=== PATIENT | female | born 1995 | race Hispanic/Latino ===

== ENCOUNTER 2019-06-07 19:32 | Observation (INO) | payer MEDICAID ==
[~2019-06-07] VITALS: Ht 160 cm; Wt 82.1 kg
[2019-06-07] MEDS ORDERED: LACTATED RINGERS 1000ML 1,000 ML IV SCH ×2 (19:45→21:45)
[2019-06-07] MEDS ORDERED: PHARMACY COMMUNICATION MISC SCH (19:45)
[2019-06-07] MEDS ORDERED: PREN-196 PO (19:46)
[2019-06-07] MEDS ORDERED: LACTATED RINGERS 1000ML 1,000 ML IV PRN (20:10)
[2019-06-07 20:17] LABS: BILIRUBIN,URINE Negative (NEGATIVE); COLOR,URINE Yellow (YELLOW); GLUCOSE, URINE (UA) Negative (NEGATIVE); KETONES,URINE >=80 mg/dL (NEGATIVE); LEUKOCYTE ESTERASE ,URINE Large (NEGATIVE); NITRATE,URINE Positive (NEGATIVE); OCCULT BLOOD,URINE Moderate (NEGATIVE); PROTEIN,URINE POS 2+ mg/dL (NEGATIVE)
[2019-06-07 20:24] LABS: AMPHET/METH SCREEN,URINE NEGATIVE (NEGATIVE); BARBITURATE SCREEN, URINE NEGATIVE (NEGATIVE); BENZODIAZEPINES SCREEN,URINE NEGATIVE (NEGATIVE); CANNABINOID SCREEN,URINE NEGATIVE (NEGATIVE); COCAINE SCREEN,URINE NEGATIVE (NEGATIVE); OPIATE SCREEN,URINE NEGATIVE (NEGATIVE); PHENCYCLIDINE SCREEN,URINE NEGATIVE (NEGATIVE)
[2019-06-07 20:42] LABS: APPEARANCE,URINE CLOUDY (CLEAR); BACTERIA,URINE Few /HPF (None Seen); SQUAMOUS EPITHELIAL CELL,UR Few /HPF (0-2); WBC,URINE 26-50 /HPF (0-1)
[2019-06-07] MEDS ORDERED: TERBUTALINE SULFATE VIAL 1MG/ML SQ SCH (21:45)
[2019-06-07] MEDS ORDERED: TERBUTALINE SULFATE VIAL 1MG/ML SQ ONE (21:50)
[2019-06-07] MEDS: TERBUTALINE SULFATE VIAL 1MG/ML SQ SCH ×2 (22:29→23:37)
[2019-06-07 22:32] LABS: APPEARANCE,URINE Cloudy (CLEAR); BILIRUBIN,URINE Negative (NEGATIVE); COLOR,URINE Yellow (YELLOW); GLUCOSE, URINE (UA) Negative (NEGATIVE); KETONES,URINE 40 mg/dL (NEGATIVE); LEUKOCYTE ESTERASE ,URINE Large (NEGATIVE); NITRATE,URINE Positive (NEGATIVE); OCCULT BLOOD,URINE Large (NEGATIVE); PROTEIN,URINE POS 1+ mg/dL (NEGATIVE)
[2019-06-07 22:55] LABS: BACTERIA,URINE Moderate /HPF (None Seen); SQUAMOUS EPITHELIAL CELL,UR Rare /HPF (0-2); WBC,URINE 26-50 /HPF (0-1)
[2019-06-07] MEDS ORDERED: ACETAMINOPHEN EXTRA STRENGTH 500 MG TABLET PO PRN (23:45)
[2019-06-08] MEDS: AMPICILLIN 2GM+NS 100ML 100 ML IV SCH ×2 (00:21→06:36)
[2019-06-08 03:40] VITALS: BP 120/80
[2019-06-08] MEDS ORDERED: FLUCONAZOLE 100 MG TAB PO SCH (06:45)
[2019-06-08] MEDS ORDERED: CEFTRIAXONE SODIUM 1 GM IVP SCH (06:45)
[2019-06-08] MEDS ORDERED: KETAMINE HCL 100 MG/ML 5ML VIAL IJ ONE (08:31)
== END 2019-06-08 10:13 | disposition home or self-care (01) ==
LOC: LDH 19:32
PROVIDERS: ADMIT Obstetrics & Gynecology; ATTEND Obstetrics & Gynecology
DX: O23.43 Unspecified infection of urinary tract in pregnancy, third trimester (principal); O62.9 Abnormality of forces of labor, unspecified; O99.323 Drug use complicating pregnancy, third trimester; F12.90 Cannabis use, unspecified, uncomplicated; O99.613 Diseases of the digestive system complicating pregnancy, third trimester; K59.00 Constipation, unspecified; Z3A.30 30 weeks gestation of pregnancy; Z79.899 Other long term (current) drug therapy
CPT/HCPCS: 80305; 81001; 96365; 96366; 96372; 96375; G0378 ×16; J0290 ×3; J0696; J3105; J3490; J7120 ×2

== ENCOUNTER 2020-12-10 15:45 | Emergency (ER) | payer MEDICAID ==
[~2020-12-10 15:45] MED LIST: PREN-196 PO
[2020-12-10 16:19] LABS: BASOPHILS % (AUTO) 0.4 % (0.0-5.0); HEMATOCRIT 35.9 % (36-48); LYMPHOCYTES % (AUTO) 11.8 % (21.0-51.0); MEAN CORPUSCULAR HEMOGLOBIN 29.2 pg (27.0-33.0); MEAN CORPUSCULAR HGB CONC 34.3 g/dL (32.0-36.0); MEAN CORPUSCULAR VOLUME 85.3 fL (79-99); MONOCYTES % (AUTO) 4.6 % (3.0-13.0); NEUTROPHILS % (AUTO) 82.8 % (40.0-77.0); PLATELET COUNT (AUTO) 341 K/uL (130-400); RED BLOOD CELL COUNT(AUTO) 4.21 MIL/uL (4.00-5.50); RED CELL DISTRIBUTION WIDTH 12.9 % (11.0-15.5); WHITE BLOOD COUNT (AUTO) 8.4 K/uL (4.8-10.8)
[2020-12-10 16:27] LABS: CREATININE 0.6 mg/dL (0.5-1.5); POTASSIUM 3.6 mmol/L (3.5-5.1)
[2020-12-10 16:32] LABS: ALBUMIN 4.1 g/dL (3.5-5.0); BILIRUBIN,TOTAL 0.2 mg/dL (0.2-1.0); TOTAL PROTEIN, SERUM 7.7 g/dL (6.0-8.3)
[2020-12-10 17:03] LABS: BILIRUBIN,URINE Negative (NEGATIVE); COLOR,URINE Yellow (YELLOW); GLUCOSE, URINE (UA) Negative (NEGATIVE); KETONES,URINE Negative (NEGATIVE); LEUKOCYTE ESTERASE ,URINE Trace (NEGATIVE); NITRATE,URINE Negative (NEGATIVE); OCCULT BLOOD,URINE Negative (NEGATIVE); PROTEIN,URINE Negative (NEGATIVE); UROBILINOGEN,URINE 0.2 mg/dL (0.2-1.0)
[2020-12-10 17:04] LABS: APPEARANCE,URINE CLEAR (CLEAR)
[2020-12-10 17:05] LABS: HCG,QUAL RESULT NEGATIVE (NEGATIVE)
[2020-12-10 17:11] LABS: AMPHET/METH SCREEN,URINE NEGATIVE (NEGATIVE); BARBITURATE SCREEN, URINE NEGATIVE (NEGATIVE); BENZODIAZEPINES SCREEN,URINE POSITIVE (NEGATIVE); CANNABINOID SCREEN,URINE POSITIVE (NEGATIVE); COCAINE SCREEN,URINE NEGATIVE (NEGATIVE); OPIATE SCREEN,URINE NEGATIVE (NEGATIVE); PHENCYCLIDINE SCREEN,URINE NEGATIVE (NEGATIVE)
[2020-12-10] MEDS ORDERED: ACETAMINOPHEN 325 MG TAB ONE (17:14)
[2020-12-10 18:21] LABS: BACTERIA,URINE Rare /HPF (None Seen); MUCUS,URINE Few LPF (None Seen); RBC,URINE 0-1 /HPF (0-1); SQUAMOUS EPITHELIAL CELL,UR Few /HPF (0-2)
== END 2020-12-10 18:37 | disposition home or self-care (01) ==
LOC: EDH 15:45
DX: R55 Syncope and collapse (principal); F19.10 Other psychoactive substance abuse, uncomplicated; R51.9 Headache, unspecified; Z72.0 Tobacco use
CPT/HCPCS: 36415; 70450; 80053; 80305; 81001; 81025; 85025; 96372; 99283; 99284; J1200; J3490

== ENCOUNTER 2020-12-10 21:48 | Emergency (ER) | payer MEDICAID ==
[2020-12-10] MEDS ORDERED: FAMOTIDINE 20MG VIAL IV ONE (22:14)
[2020-12-10] MEDS ORDERED: DiphenhydrAMINE HCL 50 MG/ML VIAL ONE (22:16)
[2020-12-10] MEDS ORDERED: LEVETIRACETAM 500 MG TABLET PO ONE (22:16)
== END 2020-12-11 00:18 | disposition home or self-care (01) ==
LOC: EDH 21:48
DX: G40.89 Other seizures (principal); Z71.51 Drug abuse counseling and surveillance of drug abuser; Z98.890 Other specified postprocedural states
CPT/HCPCS: 96372; 99283; J1200; J3490

== ENCOUNTER 2020-12-22 18:03 | Emergency (ER) | payer MEDICAID ==
[2020-12-22 18:35] LABS: APPEARANCE,URINE Cloudy (CLEAR); BILIRUBIN,URINE Negative (NEGATIVE); COLOR,URINE Yellow (YELLOW); GLUCOSE, URINE (UA) Negative (NEGATIVE); KETONES,URINE Trace mg/dL (NEGATIVE); LEUKOCYTE ESTERASE ,URINE Negative (NEGATIVE); NITRATE,URINE Negative (NEGATIVE); OCCULT BLOOD,URINE Negative (NEGATIVE); PH,URINE 5.5 (5.0-8.0); PROTEIN,URINE Negative (NEGATIVE); UROBILINOGEN,URINE 0.2 mg/dL (0.2-1.0)
[2020-12-22 18:44] LABS: HCG,QUAL RESULT NEGATIVE (NEGATIVE)
[2020-12-22 18:44] LABS: BASOPHILS % (AUTO) 0.4 % (0.0-5.0); EOSINOPHILS % (AUTO) 1.7 % (0.0-8.0); HEMATOCRIT 36.7 % (36-48); LYMPHOCYTES % (AUTO) 24.2 % (21.0-51.0); MEAN CORPUSCULAR HEMOGLOBIN 29.1 pg (27.0-33.0); MEAN CORPUSCULAR HGB CONC 33.2 g/dL (32.0-36.0); MEAN CORPUSCULAR VOLUME 87.6 fL (79-99); MONOCYTES % (AUTO) 8.2 % (3.0-13.0); NEUTROPHILS % (AUTO) 65.1 % (40.0-77.0); PLATELET COUNT (AUTO) 306 K/uL (130-400); RED BLOOD CELL COUNT(AUTO) 4.19 MIL/uL (4.00-5.50); RED CELL DISTRIBUTION WIDTH 13.2 % (11.0-15.5); WHITE BLOOD COUNT (AUTO) 7.1 K/uL (4.8-10.8)
[2020-12-22 18:48] LABS: BACTERIA,URINE Few /HPF (None Seen); RBC,URINE 0-1 /HPF (0-1); WBC,URINE 0-1 /HPF (0-1)
[2020-12-22 18:49] LABS: CALCIUM OXALATE CRYSTALS,UR Few /LPF (None Seen); MUCUS,URINE Rare LPF (None Seen); SQUAMOUS EPITHELIAL CELL,UR Moderate /HPF (0-2)
[2020-12-22 18:57] LABS: CREATININE 0.7 mg/dL (0.5-1.5); POTASSIUM 3.7 mmol/L (3.5-5.1)
[2020-12-22 19:02] LABS: ALBUMIN 3.8 g/dL (3.5-5.0); BILIRUBIN,TOTAL 0.1 mg/dL (0.2-1.0); TOTAL PROTEIN, SERUM 7.1 g/dL (6.0-8.3)
[2020-12-22] MEDS ORDERED: IOHEXOL 350 MG/ML 100ML INFUS..BTL IV ONE (19:09)
[2020-12-22] MEDS ORDERED: MORPHINE SULFATE 4 MG/1ML SYG ONE ×2 (19:17→20:41)
[2020-12-22] MEDS ORDERED: ONDANSETRON HCL 4 MG/2 ML VIAL ONE ×2 (19:17→20:41)
[2020-12-22] MEDS ORDERED: SODIUM CHLORIDE 0.9% 1000ML 1,000 ML IV ONE (19:18)
[2020-12-22 19:39] LABS: AMYLASE 77 U/L (25-115); HCG,QUANTITATIVE 0 mIU/mL (0-5); LIPASE 202 U/L (114-286)
== END 2020-12-22 21:34 | disposition home or self-care (01) ==
LOC: EDH 18:03
DX: R10.31 Right lower quadrant pain (principal); R10.33 Periumbilical pain; R19.7 Diarrhea, unspecified; Z20.822 Contact with and (suspected) exposure to COVID-19
CPT/HCPCS: 36415; 74177; 80053; 81001; 81025; 82150; 83690; 84702; 85025; 87426; 96361; 96374; 96375; 99285; J2270 ×2; J2405 ×2; J7030; Q9967; U0003

== ENCOUNTER 2021-05-31 21:13 | Emergency (ER) | payer MEDICAID ==
[~2021-05-31] VITALS: Ht 149.9 cm; Wt 49.4 kg
[2021-05-31 22:02] VITALS: BP 121/55
[2021-05-31] MEDS ORDERED: LEVE-43 PO (22:45)
== END 2021-05-31 22:56 ==
LOC: EDH 21:13
DX: G40.909 Epilepsy, unspecified, not intractable, without status epilepticus (principal); Z76.0 Encounter for issue of repeat prescription; Z79.899 Other long term (current) drug therapy
CPT/HCPCS: 99281

== ENCOUNTER 2022-03-01 12:12 | Emergency (ER) | payer MEDICAID ==
[~2022-03-01] VITALS: Ht 149.9 cm; Wt 63.5 kg
[~2022-03-01 12:12] MED LIST changes: +LEVE-43 PO
[2022-03-01] MEDS ORDERED: IBUPROFEN 800 MG TAB ONE (12:48)
[2022-03-01] MEDS ORDERED: IBUPROFEN 800 MG TAB PO ONE (13:00)
[2022-03-01] MEDS ORDERED: IBUP-2071 PO (13:15)
[2022-03-01 13:34] VITALS: BP 100/50
== END 2022-03-01 13:36 | disposition home or self-care (01) ==
LOC: EDH 12:12
DX: S82.431A Displaced oblique fracture of shaft of right fibula, initial encounter for closed fracture (principal); W19.XXXA Unspecified fall, initial encounter; Y93.89 Activity, other specified; Y92.89 Other specified places as the place of occurrence of the external cause; Y99.8 Other external cause status
CPT/HCPCS: 29515; 73610